=== PATIENT | female | born 1980 | race Caucasian/White ===

== ENCOUNTER 2020-09-23 13:52 | Inpatient (IN) ==
[2020-09-23] MEDS ORDERED: Vancomycin 1,750 MG/517.5 ML IV.SOLN IVPB ONE (15:00)
[2020-09-23 15:21] LABS: Hematocrit 43.3 % (35.3-44.9); Hemoglobin 14.2 g/dL (11.5-15.4); Mean Corpuscular HGB Conc 32.8 g/dL (31.6-35.5); Mean Corpuscular Hemoglobin 27.3 pg (28.0-33.3); Mean Corpuscular Volume 83.3 fL (83.0-100.0); Mean Platelet Volume 9.7 fL (9.4-12.4); Platelet Count 128 K/mcL (140-400); Red Cell Distribution Width 14.7 % (11.5-14.5); White Blood Count 9.2 K/mcL (4.3-11.1)
[2020-09-23 15:39] LABS: Alanine Aminotransferase 24 Units/L (7-52); Albumin 4.1 g/dL (3.5-5.7); Albumin/Globulin Ratio 1.2 (1.1-2.2); Alkaline Phosphatase 67 Units/L (34-104); Aspartate Amino Transferase 24 Units/L (13-39); BUN/Creatinine Ratio 14 (6-26); Bilirubin,Direct 0.2 mg/dL (0.0-0.2); Bilirubin,Indirect 0.7 mg/dL (0.0-1.0); Bilirubin,Total 0.9 mg/dL (0.3-1.0); Blood Urea Nitrogen 10 mg/dL (6-20); Calcium 9.1 mg/dL (8.6-10.3); Carbon Dioxide 29 mEq/L (23-29); Chloride 103 mEq/L (98-107); Globulin 3.4 g/dL (2.4-3.5); Glucose 116 mg/dL (70-105); Osmolality,Calculated 284 (280-300); Potassium 3.2 mEq/L (3.5-5.1); Sodium 137 mEq/L (136-145); Total Protein 7.5 g/dL (6.4-8.9); eGFR For African Americans > 60 (> 60); eGFR For Non-African Americans > 60 (> 60)
[2020-09-23] MEDS ORDERED: Naloxone 0.4 MG/ML INJ IVP PRN (17:21)
[2020-09-23 17:39] LABS: C-Reactive Protein 59 mg/L (Less than 10)
[2020-09-23] MEDS ORDERED: *HR* Labetalol 20 MG/4 ML SYRINGE IVP PRN (17:58)
[2020-09-23] MEDS: cloNIDine HCL 0.1 MG TABLET PO SCH (21:01)
[2020-09-23] MEDS: *HR* Buprenorphine HCl 8 MG TAB.SUBL SL SCH (21:01)
[2020-09-23] MEDS: DAPTOmycin 750 MG in 0.9 % Sodium Chloride 100 ML IVPB SCH (21:03)
[2020-09-24 04:42] LABS: Basophils % 0.2 %; Eosinophils # 0.1 K/mcL (0.0-0.6); Hematocrit 40.6 % (35.3-44.9); Immature Granulocytes % 0.2 % (0-4); Lymphocytes % 24.2 %; Mean Corpuscular Hemoglobin 26.9 pg (28.0-33.3); Mean Corpuscular Volume 83.9 fL (83.0-100.0); Mean Platelet Volume 10.8 fL (9.4-12.4); Monocytes # 0.9 K/mcL (0.0-1.3); Monocytes % 10.7 %; Neutrophils # 5.3 K/mcL (1.6-8.9); Platelet Count 126 K/mcL (140-400); Red Blood Count 4.84 M/mcL (3.82-4.97); Red Cell Distribution Width 14.8 % (11.5-14.5); Segmented Neutrophils % 63.7 %; White Blood Count 8.3 K/mcL (4.3-11.1)
[2020-09-24 04:56] LABS: BUN/Creatinine Ratio 20 (6-26); Blood Urea Nitrogen 12 mg/dL (6-20); Calcium 8.6 mg/dL (8.6-10.3); Carbon Dioxide 23 mEq/L (23-29); Chloride 105 mEq/L (98-107); Glucose 113 mg/dL (70-105); Osmolality,Calculated 281 (280-300); Potassium 3.2 mEq/L (3.5-5.1); Sodium 135 mEq/L (136-145); eGFR For African Americans > 60 (> 60); eGFR For Non-African Americans > 60 (> 60)
[2020-09-24] MEDS: *HR* Enoxaparin 40 MG/0.4 ML SYRINGE SQ SCH (05:12)
[2020-09-24] MEDS: lisinopriL 20 MG TABLET PO SCH (08:11)
[2020-09-24] MEDS: NIFEdipine XL (24 HR) 60 MG TAB.ER.24 PO SCH (08:11)
[2020-09-24] MEDS: cloNIDine HCL 0.1 MG TABLET PO SCH ×3 (08:11→21:42)
[2020-09-24] MEDS: *HR* Buprenorphine HCl 8 MG TAB.SUBL SL SCH ×2 (08:11→21:42)
[2020-09-24] MEDS: hydroCHLOROthiazide 25 MG TABLET PO SCH (08:12)
[2020-09-24 10:14] LABS: Enterococcus by PCR Not Detected (Not Detect); Staphylococcus aureus by PCR Not Detected (Not Detect); Staphylococcus by PCR Not Detected (Not Detect); blaKPC Carbapenem-Resist Gene Not Detected (Not Detect); mecA Methicillin-Resist Gene Not Detected (Not Detect); vanA/B Vancomycin-Resist Genes Not Detected (Not Detect)
[2020-09-24 10:15] LABS: Acinetobacter baumannii by PCR Not Detected (Not Detect); Candida albicans by PCR Not Detected (Not Detect); Candida glabrata by PCR Not Detected (Not Detect); Candida krusei by PCR Not Detected (Not Detect); Candida parapsilosis by PCR Not Detected (Not Detect); Candida tropicalis by PCR Not Detected (Not Detect); Enterobacter cloacae Cmplx PCR Not Detected (Not Detect); Enterobacteriaceae by PCR Not Detected (Not Detect); Escherichia coli by PCR Not Detected (Not Detect); Klebsiella oxytoca by PCR Not Detected (Not Detect); Klebsiella pneumoniae by PCR Not Detected (Not Detect); Proteus by PCR Not Detected (Not Detect); Pseudomonas aeruginosa by PCR Not Detected (Not Detect); Serratia marcescens by PCR Not Detected (Not Detect); Streptococcus agalactiae(B)PCR Not Detected (Not Detect); Streptococcus by PCR DETECTED (Not Detect); Streptococcus pneumoniae PCR Not Detected (Not Detect); Streptococcus pyogenes (A) PCR Not Detected (Not Detect)
[2020-09-24] MEDS: DAPTOmycin 750 MG in 0.9 % Sodium Chloride 100 ML IVPB SCH (18:22)
[2020-09-25] MEDS: *HR* Enoxaparin 40 MG/0.4 ML SYRINGE SQ SCH (05:39)
[2020-09-25] MEDS: NIFEdipine XL (24 HR) 60 MG TAB.ER.24 PO SCH (09:36)
[2020-09-25] MEDS: *HR* Buprenorphine HCl 8 MG TAB.SUBL SL SCH ×2 (09:36→21:03)
[2020-09-25] MEDS: hydroCHLOROthiazide 25 MG TABLET PO SCH (09:36)
[2020-09-25] MEDS: cloNIDine HCL 0.1 MG TABLET PO SCH ×3 (09:37→21:03)
[2020-09-25] MEDS: lisinopriL 20 MG TABLET PO SCH (09:37)
[2020-09-25] MEDS: Nicotine 21 MG PATCH.TD24 TD SCH (09:40)
[2020-09-25 09:50] LABS: Basophils % 0.3 %; Eosinophils # 0.2 K/mcL (0.0-0.6); Eosinophils % 3.1 %; Hemoglobin 13.7 g/dL (11.5-15.4); Immature Granulocytes % 0.3 % (0-4); Lymphocytes # 2.8 K/mcL (0.6-4.6); Lymphocytes % 38.2 %; Mean Corpuscular HGB Conc 31.9 g/dL (31.6-35.5); Mean Corpuscular Hemoglobin 26.2 pg (28.0-33.3); Mean Corpuscular Volume 82.4 fL (83.0-100.0); Mean Platelet Volume 10.1 fL (9.4-12.4); Monocytes # 0.7 K/mcL (0.0-1.3); Monocytes % 9.3 %; Neutrophils # 3.6 K/mcL (1.6-8.9); Platelet Count 181 K/mcL (140-400); Red Blood Count 5.22 M/mcL (3.82-4.97); Red Cell Distribution Width 14.8 % (11.5-14.5); Segmented Neutrophils % 48.8 %; White Blood Count 7.4 K/mcL (4.3-11.1)
[2020-09-25 10:09] LABS: BUN/Creatinine Ratio 25 (6-26); Blood Urea Nitrogen 13 mg/dL (6-20); Calcium 8.9 mg/dL (8.6-10.3); Carbon Dioxide 24 mEq/L (23-29); Chloride 108 mEq/L (98-107); Glucose 96 mg/dL (70-105); Osmolality,Calculated 286 (280-300); Potassium 3.8 mEq/L (3.5-5.1); Sodium 138 mEq/L (136-145); eGFR For African Americans > 60 (> 60); eGFR For Non-African Americans > 60 (> 60)
[2020-09-25] MEDS: DAPTOmycin 750 MG in 0.9 % Sodium Chloride 100 ML IVPB SCH (21:07)
[2020-09-26] MEDS: Acetaminophen 325 MG TABLET PO PRN ×2 (00:17→18:26)
[2020-09-26] MEDS: *HR* Enoxaparin 40 MG/0.4 ML SYRINGE SQ SCH (04:43)
[2020-09-26] MEDS: Nicotine 21 MG PATCH.TD24 TD SCH (09:00)
[2020-09-26] MEDS: NIFEdipine XL (24 HR) 60 MG TAB.ER.24 PO SCH (09:01)
[2020-09-26] MEDS: hydroCHLOROthiazide 25 MG TABLET PO SCH (09:01)
[2020-09-26] MEDS: lisinopriL 20 MG TABLET PO SCH (09:01)
[2020-09-26] MEDS: *HR* Buprenorphine HCl 8 MG TAB.SUBL SL SCH ×2 (09:01→20:44)
[2020-09-26] MEDS: cloNIDine HCL 0.1 MG TABLET PO SCH ×3 (09:02→20:44)
[2020-09-26] MEDS: DAPTOmycin 750 MG in 0.9 % Sodium Chloride 100 ML IVPB SCH (18:23)
[2020-09-27 03:30] LABS: Basophils % 0.3 %; Eosinophils # 0.2 K/mcL (0.0-0.6); Eosinophils % 2.4 %; Hematocrit 42.4 % (35.3-44.9); Immature Granulocytes % 0.2 % (0-4); Lymphocytes # 2.7 K/mcL (0.6-4.6); Lymphocytes % 42.5 %; Mean Corpuscular Hemoglobin 26.9 pg (28.0-33.3); Mean Corpuscular Volume 81.4 fL (83.0-100.0); Mean Platelet Volume 10.6 fL (9.4-12.4); Monocytes # 0.5 K/mcL (0.0-1.3); Monocytes % 7.5 %; Platelet Count 185 K/mcL (140-400); Red Blood Count 5.21 M/mcL (3.82-4.97); Red Cell Distribution Width 14.1 % (11.5-14.5); Segmented Neutrophils % 47.1 %; White Blood Count 6.3 K/mcL (4.3-11.1)
[2020-09-27 03:38] LABS: BUN/Creatinine Ratio 22 (6-26); Blood Urea Nitrogen 12 mg/dL (6-20); Carbon Dioxide 27 mEq/L (23-29); Chloride 104 mEq/L (98-107); Glucose 98 mg/dL (70-105); Osmolality,Calculated 286 (280-300); Potassium 3.6 mEq/L (3.5-5.1); Sodium 138 mEq/L (136-145); eGFR For African Americans > 60 (> 60); eGFR For Non-African Americans > 60 (> 60)
[2020-09-27] MEDS: *HR* Enoxaparin 40 MG/0.4 ML SYRINGE SQ SCH (04:36)
[2020-09-27] MEDS: *HR* Buprenorphine HCl 8 MG TAB.SUBL SL SCH ×2 (09:19→21:46)
[2020-09-27] MEDS: cloNIDine HCL 0.1 MG TABLET PO SCH ×3 (09:19→21:46)
[2020-09-27] MEDS: hydroCHLOROthiazide 25 MG TABLET PO SCH (09:19)
[2020-09-27] MEDS: lisinopriL 20 MG TABLET PO SCH (09:19)
[2020-09-27] MEDS: Nicotine 21 MG PATCH.TD24 TD SCH (09:20)
[2020-09-27] MEDS: NIFEdipine XL (24 HR) 60 MG TAB.ER.24 PO SCH (09:20)
[2020-09-27] MEDS: Ondansetron 4 MG/2 ML VIAL IVP PRN ×2 (15:25→23:35)
[2020-09-27] MEDS: DAPTOmycin 750 MG in 0.9 % Sodium Chloride 100 ML IVPB SCH (18:20)
[2020-09-27] MEDS ORDERED: DAPTOmycin 750 MG in 0.9 % Sodium Chloride 100 ML IVPB SCH (22:00)
[2020-09-28] MEDS: *HR* Enoxaparin 40 MG/0.4 ML SYRINGE SQ SCH (05:26)
[2020-09-28] MEDS: hydroCHLOROthiazide 25 MG TABLET PO SCH (09:27)
[2020-09-28] MEDS: Nicotine 21 MG PATCH.TD24 TD SCH (09:27)
[2020-09-28] MEDS: cloNIDine HCL 0.1 MG TABLET PO SCH ×3 (09:27→21:40)
[2020-09-28] MEDS: NIFEdipine XL (24 HR) 60 MG TAB.ER.24 PO SCH (09:27)
[2020-09-28] MEDS: *HR* Buprenorphine HCl 8 MG TAB.SUBL SL SCH ×2 (09:27→21:40)
[2020-09-28] MEDS: lisinopriL 20 MG TABLET PO SCH (09:28)
[2020-09-28] MEDS: Ondansetron 4 MG/2 ML VIAL IVP PRN ×2 (09:42→22:25)
[2020-09-28 09:59] LABS: Basophils % 0.3 %; Eosinophils # 0.1 K/mcL (0.0-0.6); Eosinophils % 1.3 %; Hematocrit 43.9 % (35.3-44.9); Hemoglobin 14.1 g/dL (11.5-15.4); Immature Granulocytes % 0.3 % (0-4); Lymphocytes # 1.8 K/mcL (0.6-4.6); Lymphocytes % 24.3 %; Mean Corpuscular HGB Conc 32.1 g/dL (31.6-35.5); Mean Corpuscular Hemoglobin 26.8 pg (28.0-33.3); Mean Corpuscular Volume 83.5 fL (83.0-100.0); Monocytes # 0.6 K/mcL (0.0-1.3); Monocytes % 7.6 %; Platelet Count 231 K/mcL (140-400); Red Blood Count 5.26 M/mcL (3.82-4.97); Red Cell Distribution Width 14.2 % (11.5-14.5); Segmented Neutrophils % 66.2 %; White Blood Count 7.5 K/mcL (4.3-11.1)
[2020-09-28 10:14] LABS: BUN/Creatinine Ratio 19 (6-26); Blood Urea Nitrogen 15 mg/dL (6-20); Carbon Dioxide 28 mEq/L (23-29); Chloride 102 mEq/L (98-107); Glucose 121 mg/dL (70-105); Osmolality,Calculated 288 (280-300); Potassium 3.5 mEq/L (3.5-5.1); Sodium 138 mEq/L (136-145); eGFR For African Americans > 60 (> 60); eGFR For Non-African Americans > 60 (> 60)
[2020-09-28] MEDS: DAPTOmycin 750 MG in 0.9 % Sodium Chloride 100 ML IVPB SCH (11:21)
[2020-09-28] MEDS ORDERED: EPINEPHrine 1 MG/ML VIAL IM PRN (11:30)
[2020-09-28] MEDS ORDERED: methylPREDNISolone 125 MG/2 ML VIAL IVP PRN (11:30)
[2020-09-28] MEDS ORDERED: 0.9 % Sodium Chloride 10 ML PF VIAL TP ONE (11:30)
[2020-09-28] MEDS ORDERED: Famotidine 20 MG/2 ML VIAL IVP PRN (11:30)
[2020-09-28] MEDS ORDERED: Penicillin test 1000 units/0.1 ml ID ONE (11:30)
[2020-09-28] MEDS ORDERED: Penicillin test 1000 units/0.1 ml TP ONE (11:30)
[2020-09-28] MEDS ORDERED: EPINEPHrine 1 MG/ML VIAL IV PRN (11:30)
[2020-09-28 13:08] LABS: Creatine Kinase 44 Units/L (30-223)
[2020-09-28] MEDS ORDERED: Amoxicillin Susp 250 MG/5 ML UDC PO ONE (14:15)
[2020-09-28] MEDS: Acetaminophen 325 MG TABLET PO PRN (22:25)
[2020-09-29 04:59] LABS: Basophils % 0.3 %; Eosinophils # 0.1 K/mcL (0.0-0.6); Eosinophils % 1.8 %; Hematocrit 44.6 % (35.3-44.9); Hemoglobin 13.8 g/dL (11.5-15.4); Immature Granulocytes % 0.1 % (0-4); Lymphocytes # 3.2 K/mcL (0.6-4.6); Lymphocytes % 41.5 %; Mean Corpuscular HGB Conc 30.9 g/dL (31.6-35.5); Mean Corpuscular Volume 84.2 fL (83.0-100.0); Mean Platelet Volume 9.9 fL (9.4-12.4); Monocytes # 0.6 K/mcL (0.0-1.3); Monocytes % 8.1 %; Neutrophils # 3.7 K/mcL (1.6-8.9); Platelet Count 235 K/mcL (140-400); Red Cell Distribution Width 14.1 % (11.5-14.5); Segmented Neutrophils % 48.2 %; White Blood Count 7.7 K/mcL (4.3-11.1)
[2020-09-29 05:21] LABS: BUN/Creatinine Ratio 22 (6-26); Blood Urea Nitrogen 19 mg/dL (6-20); Carbon Dioxide 27 mEq/L (23-29); Chloride 102 mEq/L (98-107); Glucose 98 mg/dL (70-105); Osmolality,Calculated 288 (280-300); Potassium 3.3 mEq/L (3.5-5.1); Sodium 138 mEq/L (136-145); eGFR For African Americans > 60 (> 60); eGFR For Non-African Americans > 60 (> 60)
[2020-09-29] MEDS: *HR* Enoxaparin 40 MG/0.4 ML SYRINGE SQ SCH (06:11)
[2020-09-29] MEDS: Ondansetron 4 MG/2 ML VIAL IVP PRN ×2 (09:04→20:32)
[2020-09-29] MEDS: Nicotine 21 MG PATCH.TD24 TD SCH (09:05)
[2020-09-29] MEDS: cloNIDine HCL 0.1 MG TABLET PO SCH ×3 (09:05→20:27)
[2020-09-29] MEDS: *HR* Buprenorphine HCl 8 MG TAB.SUBL SL SCH ×2 (09:05→20:27)
[2020-09-29] MEDS: lisinopriL 20 MG TABLET PO SCH (09:05)
[2020-09-29] MEDS: hydroCHLOROthiazide 25 MG TABLET PO SCH (09:05)
[2020-09-29] MEDS: NIFEdipine XL (24 HR) 60 MG TAB.ER.24 PO SCH (09:05)
[2020-09-29] MEDS: DAPTOmycin 750 MG in 0.9 % Sodium Chloride 100 ML IVPB SCH (12:23)
[2020-09-29] MEDS: Acetaminophen 325 MG TABLET PO PRN (20:32)
[2020-09-30] MEDS: *HR* Enoxaparin 40 MG/0.4 ML SYRINGE SQ SCH (05:04)
[2020-09-30] MEDS: hydroCHLOROthiazide 25 MG TABLET PO SCH (09:48)
[2020-09-30] MEDS: *HR* Buprenorphine HCl 8 MG TAB.SUBL SL SCH (09:48)
[2020-09-30] MEDS: DAPTOmycin 750 MG in 0.9 % Sodium Chloride 100 ML IVPB SCH (09:48)
[2020-09-30] MEDS: NIFEdipine XL (24 HR) 60 MG TAB.ER.24 PO SCH (09:48)
[2020-09-30] MEDS: cloNIDine HCL 0.1 MG TABLET PO SCH ×2 (09:48→15:21)
[2020-09-30] MEDS: lisinopriL 20 MG TABLET PO SCH (09:48)
[2020-09-30] MEDS: Ondansetron 4 MG/2 ML VIAL IVP PRN (09:52)
[2020-09-30] MEDS: Nicotine 21 MG PATCH.TD24 TD SCH (09:56)
[2020-09-30 11:35] VITALS: BP 100/67
== END 2020-09-30 18:36 | disposition home or self-care (01) | DRG 193 ==
LOC: EMEROOARM 13:52 → 2ANU 13:52 → SUATTDRO 17:50 → 2ANU 18:38
PROVIDERS: ADMIT Family Medicine; ATTEND Internal Medicine